=== PATIENT | female | born 1975 | race Caucasian/White ===

== ENCOUNTER → 2023-09-20 07:59 | Outpatient (REF) | payer BC, SELFPAY ==
[2023-09-20 08:29] LABS: % Basophils 1.3 % (0-2); % Eosinophils 6.4 % (0-6); % Immature Granulocytes 0.2 % (0-0.5); % Lymphocytes 37.3 % (20.5-51.1); % Monocytes 5.8 % (1.7-9.3); Absolute Basophils 0.1 10^3/uL (0-0.2); Absolute Eosinophils 0.4 10^3/uL (0-0.7); Absolute Lymphocytes 2.3 10^3/uL (1.2-3.4); Absolute Monocytes 0.4 10^3/uL (0.1-0.6); Hematocrit 40.5 % (37.0-47.0); Hemoglobin 13.6 g/dL (12.0-16.0); Mean Corp Hgb Conc. 33.6 g/dL (33.0-37.0); Mean Corpuscular Volume 89.2 fL (81.0-99.0); Nucleated Red Blood Cells % 0 %; Platelet Count 286 10^3/uL (130-400); Red Blood Cell Count 4.54 10^6/uL (4.20-5.40); Red Cell Dist. Width 12.3 % (11.5-14.5); White Blood Cell Count 6.1 10^3/uL (4.8-10.8)
[2023-09-20 09:12] LABS: C-Reactive Protein < 5.00 mg/L (0.0-10.00)
[2023-09-20 09:19] LABS: ALT (SGPT) 34 U/L (0-35); AST (SGOT) 26 U/L (14-36); Albumin 4.8 g/dl (3.5-5.0); Alkaline Phosphatase 84 U/L (38-126); Blood Urea Nitrogen 13 mg/dl (7-17); Calcium 9.9 mg/dl (8.4-10.2); Carbon Dioxide 29 mmol/L (22-30); Chloride 104 mmol/L (98-107); Glucose 96 mg/dl (70-99); HDL Cholesterol 62 mg/dl; Iron 108 ug/dl (37-170); LDL Cholesterol, Calculated 159 mg/dl; Potassium 4.6 mmol/L (3.5-5.1); Sodium 139 mmol/L (135-145); Total Cholesterol 246 mg/dl (50-199); Total Protein 7.7 g/dl (6.3-8.2); Triglyceride 127 mg/dl (10-149); Very Low Density Lipoprotein 25 mg/dl (0-30); eGFR > 60.00
[2023-09-20 09:29] LABS: Percent Saturation 33 % (20-50); Total Iron Binding Capacity 319 ug/dl (265-497)
[2023-09-20 09:30] LABS: Free T3 3.42 pg/ml (2.77-5.27); Vitamin D, 25-OH*** 55.6 ng/mL (30-80)
[2023-09-20 09:39] LABS: Glycohemoglobin (HgbA1c) 5.6 % (4.0-5.6)
[2023-09-20 09:44] LABS: Cortisol, Random 8.8 ug/dl; TSH 1.87 uIU/ml (0.47-4.68); TSH Reflex To Free T4 1.87 uIU/ml (0.47-4.68)
[2023-09-20 09:48] LABS: Ferritin 54.3 ng/ml (6.24-137)
[2023-09-20 10:04] LABS: Vitamin B12 608 pg/ml (239-931)
[2023-09-21 21:26] LABS: Insulin, Random 9 uIU/mL
[2023-09-21 22:03] LABS: Homocysteine 14 umol/L (0-15)
== END ==
LOC: REG 07:59
PROVIDERS: ATTENDING PHYSICIAN Family Medicine
DX: E55.9 Vitamin D deficiency, unspecified (principal); R53.83 Other fatigue; R10.9 Unspecified abdominal pain; E53.8 Deficiency of other specified B group vitamins; E78.5 Hyperlipidemia, unspecified; M25.50 Pain in unspecified joint
CPT/HCPCS: 36415; 80053; 80061; 82306; 82533; 82607; 82728; 83036; 83090; 83525; 83540; 83550; 84443; 84481; 85025; 86140

== ENCOUNTER → 2023-11-26 10:21 | Outpatient (REF) | payer BC, SELFPAY | LOC: HWRCS 10:21 | PROVIDERS: ATTENDING PHYSICIAN Internal Medicine; FAMILY PHYSICIAN Family Medicine | DX: I49.1 Atrial premature depolarization (principal); R06.02 Shortness of breath; R00.2 Palpitations | CPT/HCPCS: 93306 ==

== ENCOUNTER 2024-03-18 16:31 | Emergency (ER) | payer BC, SELFPAY ==
[2024-03-18 16:41] VITALS: BP 134/77
[2024-03-18 17:01] LABS: % Basophils 0.9 % (0-2); % Eosinophils 4.1 % (0-6); % Immature Granulocytes 0.1 % (0-0.5); % Lymphocytes 31.4 % (20.5-51.1); % Monocytes 5.2 % (1.7-9.3); % Neutrophils 58.3 % (42.2-75.2); Absolute Basophils 0.1 10^3/uL (0-0.2); Absolute Eosinophils 0.3 10^3/uL (0-0.7); Absolute Lymphocytes 2.4 10^3/uL (1.2-3.4); Absolute Monocytes 0.4 10^3/uL (0.1-0.6); Absolute Neutrophils 4.5 10^3/uL (1.4-6.5); Hematocrit 38.5 % (37.0-47.0); Hemoglobin 13.3 g/dL (12.0-16.0); Mean Corp Hgb Conc. 34.5 g/dL (33.0-37.0); Mean Corpuscular Hgb 29.7 pg (27.0-31.0); Mean Corpuscular Volume 85.9 fL (81.0-99.0); Mean Platelet Volume 9.7 fL (7.4-10.4); Nucleated Red Blood Cells % 0 %; Platelet Count 314 10^3/uL (130-400); Red Blood Cell Count 4.48 10^6/uL (4.20-5.40); Red Cell Dist. Width 12.4 % (11.5-14.5); White Blood Cell Count 7.8 10^3/uL (4.8-10.8)
[2024-03-18 17:46] LABS: ALT (SGPT) 42 U/L (0-35); AST (SGOT) 43 U/L (14-36); Albumin 4.9 g/dl (3.5-5.0); Alkaline Phosphatase 114 U/L (38-126); Blood Urea Nitrogen 13 mg/dl (7-17); Calcium 9.7 mg/dl (8.4-10.2); Carbon Dioxide 26 mmol/L (22-30); Chloride 101 mmol/L (98-107); Glucose 107 mg/dl (70-99); Lipase 120 U/L (23-300); Potassium 4.7 mmol/L (3.5-5.1); Sodium 140 mmol/L (135-145); Total Bilirubin 1.1 mg/dl (0.2-1.3); Total Protein 7.7 g/dl (6.3-8.2); eGFR > 60.00
[2024-03-18 17:51] VITALS: BMI 37.5
[2024-03-18 18:01] VITALS: BP 121/50
[2024-03-18 18:07] LABS: Urine Albumin Negative (Neg - Trace); Urine Bilirubin Negative (Negative); Urine Character Clear (Clear); Urine Color Yellow; Urine Glucose Negative (Negative); Urine Ketone 1+ (Negative); Urine Leukocyte Trace (Negative); Urine Nitrite Negative (Negative); Urine Occult Blood Negative (Negative); Urine Urobilinogen Negative (Neg - 1+)
[2024-03-18 18:21] LABS: Urine Red Blood Cell 0-2 /HPF (0-2); Urine White Cell 0-2 /HPF (0-5)
--- NOTE | 2024-03-18 18:35 | ED.GENMED ---
History of Present Illness
General
Chief Complaint: Abdominal Pain
Source: patient
Exam Limitations: none
Time Seen by Provider: 03/18/24 17:58
History of Present Illness
History of Present Illness:
This is a 48 year old female that comes in with c/o right lower abd pain. 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 States that over the past week this has gotten worse. States that this is like a burning in the
muscle. States that she has been taking Ibuprofen. Then on Friday last week she came home from work and she had a fever of 99.9. States that she went to bed early. Then she was slightly better as the fever was gong but the pain
continues. States that she has not been able to move her bowels and she took Magnesium Citrate tablets, Senokot, Dulcolax and glycerin suppository and she was doing this daily and very little came out. States that she can't go if she doesn't take
things. States that she has also started with palpitations and Dr. Jimenes has given her Diltiazem to take on a PRN bases but she has been taking them every day. States that she is also nauseated. States that 2 nights ago she was unable to sleep as
this was a throbbing pain. Last night she did warm compresses. Now the pain is moving to the flank and into her back. States that she felt shaky. States that she has occasional SOB, headache. Denies any further fever or chills, chest pain, vomiting,
diarrhea, dizziness, urinary burning.
Past History
Past History
ED Past Medical History: Arrthythmia (PAC's), Asthma, Cancer (Skin CA), GERD, Hypercholesterolemia and Other (Recurrent chest pain, Diverticulosis, Ovarian cyst, Uterine fibroids, Pelvic congestion syndrome, Lyme disease, Detoxification gene
mutation)
ED Past Surgical History: Appendectomy, (X 2) and Gynecological (D&E, Total Hysterectomy, )
Social History
Tobacco: Non-smoker
Alcohol: None
Drug: None
Personal:
Living: with family
Employment: Employed (Nurse practitioner at [employer])
Family History
Family History: Other ([place])
Review of Systems
Review of Systems
All Other Systems: ROS reviewed and negative except as documented in HPI and ROS
Constitutional: Reports no symptoms; Denies fever or chills
EENT: Reports no symptoms
Respiratory: Reports trouble breathing (Occasional); Denies cough
Cardiac: Reports no symptoms; Denies chest pain
ABD/GI: Reports abdominal pain and nausea; Denies vomiting or diarrhea
: Reports flank pain (Right sided); Denies dysuria, frequency or urgency
Musculoskeletal: Reports no symptoms
Skin: Reports no symptoms
Neurological: Reports headache; Denies dizzy
Psychiatric: Reports no symptoms
Phy Exam
General Physical Exam
General Presentation: mild distress (Patient refused pain medication)
General age: appears stated age
General Skin: warm and dry
General Habitus: normal
General Mental: alert
General Hydration: appears well hydrated
ENT Exam
ENT Exam: TM's normal, pharynx normal and neck supple
Eye Exam
Eye Exam: EOMI
Cardiovascular Exam
Cardiovascular Exam: no edema, no murmur, normal peripheral pulses and irregularly irregular (PAC's noted with NSR)
Pulmonary Exam
Pulmonary Exam: lungs clear, no respiratory distress, no rales, chest non tender, no crackles, no rhonchi, no wheezing and no cough
Gastrointestinal Exam
Gastrointestinal Exam: soft, no organomegaly, no pulsatile mass, non distended, tender (Right lower abd tenderness with palpation) and other (Hypoactive bowel sounds)
Musculoskeletal Exam
Musculoskeletal Exam: full ROM and no edema
Skin Exam
Skin Exam: normal color, warm/dry, no rash and no petechia
Psychiatric Exam
Psychiatric Exam: normal mood/affect
Course
Orders/Labs/Results
Orders:
Orders
03/18/24 16:45
IV Insert/Care/Rem.- Treatment PRN
03/18/24 16:53
Complete Blood Count/With Diff Urgent
Comprehensive Metabolic Panel Urgent
Lipase Urgent
03/18/24 17:59
Urinalysis Reflex To Culture Urgent
Date Specimen was Collected: 03/18/24
Time Specimen was Collected: 16:45
Urine Microscopic Reflex Cult Urgent
03/18/24 18:34
CT Abd/pelvis W Iv Cont Urgent
Comment:
Reason For Exam: Right sided abd pain
0.9% Sodium Chloride 1000 ml [Nss] 1,000 ml IV BOLUS
03/18/24 18:46
Electrocardiogram (*1) Urgent
Reason for Study: Abdominal Pain
EKG- Treatment ONCE
Abnormal Lab Results
03/18/24 03/18/24
16:53 17:59
Glucose 107 H mg/dl
(70-99)
AST 43 H U/L
(14-36)
ALT 42 H U/L
(0-35)
Urine Ketones 1+ A
(Negative)
Leukocyte Esterase Rfl Trace A
(Negative)
03/18/24 16:53
03/18/24 16:53
Glucose nonfasting. AST/ALT mildly elevated. Lipase normal at 120, Urine negative for infection.
Vital Signs
Initial and Last Documented VS:
Initial Vital Signs
Temp Pulse Resp BP Pulse Ox
98.7 F 54 16 134/77 99
03/18/24 16:41 03/18/24 16:41 03/18/24 16:41 03/18/24 16:41 03/18/24 16:41
Last Documented Vital Signs
Temp Pulse Resp BP Pulse Ox
98.7 F 79 22 121/50 99
03/18/24 16:41 03/18/24 18:29 03/18/24 18:15 03/18/24 18:01 03/18/24 16:41
MDM/Problems Addressed
Differential Diagnosis Includes:
Adhesion, Back problems.
MDM/Problems Addressed:
This is a 48 year old female that comes in with c/o right sided abd pain. States that this has been going on for a week and it seemed to be getting worse.
Will check labs and get CT scan.
Back into see patient. Explained that her blood work shows that her liver enzymes are slightly elevated, otherwise her labs are normal. CT of the abd/pelvis is normal. There is no inflammatory changes or obstruction in bowel or ureters. This may be
coming from her back as the nerves wrap around to the abd. Patient can use Tylenol and Ibuprofen. Try Lidoderm patch, heat or ice to the back. Follow up with the family doctor. Return with any concerns.
Chronic conditions affecting care: Previous abdomnial surgery
Acute Exacerbation and/or Progression of Chronic Illness: Previous abdomnial surgery
*Radiology
Radiology exam reviewed: radiology read reviewed (CT -No acute inflammatory process within the abdomen or pelvis. MIld colonic fecal burden. NO evidence of bowel obstruction. NO obstructive uropathy. )
*Pulse Oximetry
Patient hypoxic: no
*Auto Dealer Interpretation
Rate: normal
Heart Rate: 88
Rhythm: sinus and PAC's
*Critical Care Note
Total Time (30-74mins, 75-104mins- exclusive of procedures): Not Applicable
ED Attending Note
-
Portions of this chart may have been created with voice recognition software.� Occasional wrong word or��sound alike� substitutions may have occurred due to the inherent limitations of voice recognition software.
Discharge Plan
Departure
Patient Disposition: Home (Routine Discharge)
Date of Disposition: 03/18/24
Time of Disposition: 20:40
Patient with high blood pressure during this ER visit?: No
Condition: Good
Covid-19: Not Applicable
Discharge Problem:
Right-sided abdominal pain of unknown cause
Instructions: Abdominal Pain
Prescriptions:
No Action
multivitamin 1 EACH tablet
1 ea PO DAILY
Bacillus coagulans [Probiotic (B. coagulans)] 1 EACH capsule,delayed release(DR/EC)
1 ea PO DAILY
aspirin 81 MG tablet,chewable
81 mg PO DAILY
diltiazem HCl 30 MG tablet
15 mg PO BID
famotidine [Pepcid AC] 10 MG tablet
10 mg PO BID
ibuprofen 600 MG tablet
600 mg PO BID
Referrals:
Humberto Sotelo, [Family Provider] - Call in 1-3 days for appt
Activity Restrictions/Additional Instructions:
As discussed, your blood work shows that your Liver enzymes are slightly elevated, otherwise your blood work is normal. Your urine is negative for infection. Your CT is negative for any inflammatory process, obstruction or any other acute process.
Please increase your water intake to 8-8oz glasses daily. Follow up with the family doctor for recheck. This may be due to some back issues as the nerves wrap around to the abdomen. You may use Tylenol and alternate with Ibuprofen for pain. Try a
Lidoderm patch to the back. Heat or ice which ever makes you feel better. IF YOU HAVE ANY OTHER CONCERNS PLEASE RETURN TO THE EMERGENCY ROOM
Interventions
Interventions:
*Risk Screen - Suicide Last Done: 03/18/24 17:52
*General Assessment Last Done: 03/18/24 17:52
*Neglect/Abuse Screening Last Done: 03/18/24 17:52
ED- Fall Risk Assessment Last Done: 03/18/24 18:29
*ED COVID-19 Vaccine History Last Done: 03/18/24 17:52
[facility]-Wczjfp-Lerjfhethi Assessment Last Done: 03/18/24 17:55
Discharge Date and Time
Print Language: [id number]
[2024-03-18] MEDS: NSS 1000 IV (19:12)
[2024-03-18 20:00] VITALS: BP 108/74
== END 2024-03-18 20:52 | disposition home or self-care (01) ==
LOC: EMR 16:31
PROVIDERS: Emergency Medicine; EMERGENCY PHYSICIAN Emergency Medicine; FAMILY PHYSICIAN Family Medicine
DX: R10.31 Right lower quadrant pain (principal)
CPT/HCPCS: 99285; 96360; 74177; 80053; 81003; 81015; 83690; 85025; 93005; Q9967

== ENCOUNTER → 2024-08-27 10:35 | Outpatient (REF) | payer BC, SELFPAY | LOC: HWRAD 10:35 | PROVIDERS: ATTENDING PHYSICIAN Physician Assistant Surgical; FAMILY PHYSICIAN Family Medicine | DX: R91.1 Solitary pulmonary nodule (principal); J45.909 Unspecified asthma, uncomplicated | CPT/HCPCS: 71250 ==

== ENCOUNTER → 2024-11-01 09:33 | Outpatient (REF) | payer BC, SELFPAY ==
[2024-11-01 11:13] LABS: ALT (SGPT) 18 U/L (0-35); AST (SGOT) 19 U/L (14-36); Albumin 4.7 g/dl (3.5-5.0); Alkaline Phosphatase 93 U/L (38-126); Blood Urea Nitrogen 8 mg/dl (7-17); Calcium 9.6 mg/dl (8.4-10.2); Carbon Dioxide 27 mmol/L (22-30); Chloride 104 mmol/L (98-107); Glucose 102 mg/dl (70-99); Iron 130 ug/dl (37-170); Sodium 142 mmol/L (135-145); Total Protein 7.7 g/dl (6.3-8.2); eGFR > 60.00
[2024-11-01 11:23] LABS: Percent Saturation 41 % (20-50); Total Iron Binding Capacity 316 ug/dl (265-497)
[2024-11-01 11:47] LABS: Ferritin 37.3 ng/ml (11.1-264.0)
[2024-11-03 00:29] LABS: Transferrin 264 mg/dL (200-360)
== END ==
LOC: REG 09:33
DX: E83.119 Hemochromatosis, unspecified (principal)
CPT/HCPCS: 36415; 80053; 81256; 82728; 83540; 83550; 84466